=== PATIENT | male | born 1960 | race Caucasian/White ===

== ENCOUNTER → 2016-09-30 | Outpatient (CLI) | payer OTHER ==
[2016-09-30 09:55] LABS: ALT/SGPT 34 U/L (12-78); AST/SGOT 28 U/L (15-37); BLOOD UREA NITROGEN 22 mg/dl (7-18); BUN/CREATININE RATIO 15.6 (10-20); CALCIUM 8.6 mg/dl (8.5-10.1); CARBON DIOXIDE 28 mmol/L (21-32); CHLORIDE 105 mmol/L (98-107); GLUCOSE 116 mg/dl (70-99); POTASSIUM 3.8 mmol/L (3.5-5.1); SODIUM 141 mmol/L (136-145)
[2016-09-30 09:59] LABS: ALB/GLOB RATIO 1.1 (0.9-2); ALKALINE PHOSPHATASE 77 U/L (45-117); CHOLESTEROL 189 mg/dl (0-200); CHOLESTEROL/HDL RATIO 5.3; HDL CHOLESTEROL 36 mg/dl; LDL CHOLESTEROL CALCULATED 123 mg/dl; TRIGLYCERIDES 150 mg/dl (0-150); VERY LOW DENSITY LIPOPROT CALC 30 mg/dl
== END | disposition home or self-care (01) ==
LOC: C.LAB1850 06:55
PROVIDERS: ATTEND Nurse Practitioner Family
DX: Z00.00 Encounter for general adult medical examination without abnormal findings (principal); R73.01 Impaired fasting glucose; E78.1 Pure hyperglyceridemia; Z11.59 Encounter for screening for other viral diseases

== ENCOUNTER → 2017-01-06 | Outpatient (CLI) | payer OTHER ==
[2017-01-06 09:35] LABS: BASO % 1.7 %; BASO ABS # 0.09 K/uL (0-0.2); COMPLETE YES; EOS % 2.8 %; HEMATOCRIT 50.2 % (42-52); LYMPH ABS # 2.31 K/uL (1.2-3.4); MEAN CELL VOLUME 93.3 fL (80-100); MEAN CORPUSCULAR HEMOGLOBIN 32.5 pg (25-34); MEAN CORPUSCULAR HGB CONC 34.9 g/dl (32-36); MONO % 9.3 %; NEUT % 43.2 %; PLATELET COUNT 191 K/uL (130-400); RED BLOOD COUNT 5.38 M/uL (4.7-6.1); WHITE BLOOD COUNT 5.37 K/uL (4.8-10.8)
[2017-01-06 10:06] LABS: ALT/SGPT 25 U/L (12-78); AST/SGOT 19 U/L (15-37); BLOOD UREA NITROGEN 22 mg/dl (7-18); BUN/CREATININE RATIO 15.7 (10-20); CALCIUM 8.6 mg/dl (8.5-10.1); CARBON DIOXIDE 27 mmol/L (21-32); CHLORIDE 105 mmol/L (98-107); GLUCOSE 148 mg/dl (70-99); POTASSIUM 4.1 mmol/L (3.5-5.1); SODIUM 140 mmol/L (136-145)
[2017-01-06 10:18] LABS: ALB/GLOB RATIO 1.1 (0.9-2); ALKALINE PHOSPHATASE 67 U/L (45-117); FERRITIN 463.9 ng/ml (8.0-388.0)
== END | disposition home or self-care (01) ==
LOC: C.LAB1850 06:57
PROVIDERS: ATTEND Nurse Practitioner Family
DX: L60.9 Nail disorder, unspecified (principal); R53.83 Other fatigue; R17 Unspecified jaundice

== ENCOUNTER → 2017-01-09 | Outpatient (CLI) | payer OTHER ==
--- NOTE | 2017-01-09 08:38 | DIAGNOSTIC IMAGING REPORT ---
ABDOMINAL ULTRASOUND, RIGHT UPPER QUADRANT HISTORY: R17 Elevated bilirubin. COMPARISON: None. FINDINGS: Pancreas: The pancreas demonstrates a normal echotexture. Liver: The liver is echogenic consistent with fatty change. Small area of focal fatty sparing adjacent to the gallbladder fossa. Gallbladder: No gallbladder wall thickening. No gallstones. Suspect trace sludge. CBD: 4 mm. Right kidney: No hydronephrosis. IMPRESSION: 1. Probable trace sludge within the gallbladder. No gallstones. 2. Hepatic steatosis. Electronically signed by: Dhruv Ibrahim M.D. 01/09/2017 8:36 AM Dictated Date/Time: 01/09/2017 8:35 AM
== END | disposition home or self-care (01) ==
LOC: C.ULTR 07:56
PROVIDERS: ATTEND Nurse Practitioner Family
DX: R17 Unspecified jaundice (principal)

== ENCOUNTER → 2017-07-07 | Outpatient (CLI) | payer OTHER ==
--- NOTE | 2017-07-07 17:00 | DIAGNOSTIC IMAGING REPORT ---
RIGHT AXILLARY ULTRASOUND CLINICAL HISTORY: R59.0 Axillary lymphadenopathy evaluate right axillary lymphadenopathy COMPARISON STUDY: No previous studies for comparison. FINDINGS: There is a mildly enlarged 2 cm lymph node within the right axilla. This demonstrates abnormal architecture. Corresponding to a palpable abnormality in the right shoulder region there is a 47 x 47 x 9 mm circumscribed mass with an appearance suggestive of a lipoma. Definitive tissue characterization is unfortunately not possible with ultrasound. IMPRESSION: 1. Mildly enlarged 2 cm right axillary lymph node with abnormal architecture. Further workup is advocated 2. 37 x 47 x 9 mm circumscribed subcutaneous mass in the right shoulder region. The appearance is suggestive of but not diagnostic of a lipoma Electronically signed by: Chuck Marrero M.D. 07/07/2017 4:59 PM Dictated Date/Time: 07/07/2017 4:55 PM
== END | disposition home or self-care (01) ==
LOC: C.ULTR 15:44
PROVIDERS: ATTEND Nurse Practitioner Family
DX: R59.0 Localized enlarged lymph nodes (principal)

== ENCOUNTER → 2017-07-18 | Outpatient (CLI) | payer OTHER ==
--- NOTE | 2017-07-18 09:56 | DIAGNOSTIC IMAGING REPORT ---
L KNEE 1 OR 2 VIEWS ROUTINE CLINICAL HISTORY: M25.569 pain COMPARISON: None. DISCUSSION: The bones and joint spaces appear intact. There is no evidence of fracture, dislocation or bony disease. There is no evidence for soft tissue swelling. IMPRESSION: Negative study. The above report was generated using voice recognition software. It may contain grammatical, syntax or spelling errors. Electronically signed by: Tae Perez M.D. 07/18/2017 9:55 AM Dictated Date/Time: 07/18/2017 9:54 AM
== END | disposition home or self-care (01) ==
LOC: C.RAD1850 09:43
PROVIDERS: ATTEND Nurse Practitioner Family
DX: M25.569 Pain in unspecified knee (principal)

== ENCOUNTER → 2017-07-24 | Outpatient (CLI) | payer OTHER ==
--- NOTE | 2017-07-25 13:38 | MAMMOGRAPHY REPORT ---
ULTRASOUND OF RIGHT BREAST: 07/24/2017 CLINICAL HISTORY: The patient reports right axillary swelling without any associated soreness/pain fo r a few months. He had an ultrasound performed on 07/07/2017, which shows an enlarged 2 cm right axi llary lymph node. He underwent a consultation with Dr. Roberts, who recommended a repeat ultrasound at the breast center. COMPARISON: Comparison is made to exam dated: 07/07/2017 mammogram - [facility]. TECHNIQUE: Real-time targeted ultrasound of the right axilla was performed. FINDINGS: Targeted ultrasound was performed of the right axilla. In the right axilla, there are multiple morph ologically normal right axillary lymph nodes which are composed predominantly of fat and have very th in peripheral cortices. The largest lymph node measures 2.4 x 1.4 x 1.9 cm, which contains a normal fatty hilum (which is mildly heterogeneous in echogenicity containing echogenic and hypoechoic areas) and contains a thin, almost imperceptible peripheral cortex. The other lymph nodes contain normal f atty gladys and thin peripheral cortices. No abnormal lymph nodes are seen. The remainder of the righ t axilla demonstrates no suspicious masses or other suspicious sonographic abnormalities. IMPRESSION: ACR BI-RADS CATEGORY 2: BENIGN Morphologically normal right axillary lymph nodes, without evidence of adenopathy. No suspicious mas s or other etiology for axillary swelling is evident. There is no sonographic evidence of malignancy . Recommend clinical follow-up for right axillary swelling. The patient was readily notified of the results. Adri Hudson M.D. ah/:07/24/2017 14:31:27 Salmon Gillnet Vessel Operator: Adri Hudson MD, [facility] letter sent: Normal 1/2 BI-RADS Code: ACR BI-RADS Category 2: Benign
== END | disposition home or self-care (01) ==
LOC: C.MAMM 13:45
PROVIDERS: ATTEND Surgery
DX: R59.0 Localized enlarged lymph nodes (principal)